=== PATIENT | male | born 2000 | race Caucasian/White ===

== ENCOUNTER 2021-06-17 17:39 | Emergency (ER) | payer BC, MEDICAID ==
[2021-06-17] MEDS ORDERED: Diphtheria,Pertussis(Acell),Tetanus Vaccine 0.5 ML Syringe IM ONE (18:03)
[2021-06-17] MEDS ORDERED: Bacitracin Oint 1 GM U/D Packet TOP ONE (18:03)
--- NOTE | 2021-06-17 18:09 | EDM.PDOC ---
ED HPI GENERAL MEDICAL PROBLEM - General Chief Complaint: Laceration Stated Complaint: CUT LEFT HAND WITH RAZOR BLADE Time Seen by Provider: 06/17/21 18:03 Source of Information: Reports: Patient History Limitations: Reports: No Limitations - History of Present Illness INITIAL COMMENTS - FREE TEXT/NARRATIVE: Darius is a 20-year-old male presenting to the ED for evaluation of a laceration to his left little finger. Patient was trimming up his snowboard with a razor knife and slipped causing him to incise into the palmar side of the PIP of his left little finger. He does have full range of motion and has distal sensation. - Related Data Allergies Allergy/AdvReac Type Severity Reaction Status Date / Time No Known Allergies Allergy Verified 06/17/21 18:04 Home Meds: Home Meds NK [No Known Home Meds] 06/17/21 [History] ED ROS GENERAL - Review of Systems Review Of Systems: See Below Constitutional: Reports: No Symptoms Musculoskeletal: Reports: Hand Pain (Left hand pain due to laceration of the left fifth finger) Skin: Reports: Wound (3 cm laceration on the palmar left little finger at the PIP) Neurological: Reports: No Symptoms ED EXAM, SKIN/RASH Exam: See Below Exam Limited By: No Limitations General Appearance: Alert, No Apparent Distress Extremities: Normal Range of Motion, Normal Capillary Refill Neurological: Alert, Oriented, No Motor/Sensory Deficits Skin: Wound/Incision (3 cm laceration over the PIP of the palmar side of the left little finger. Wound goes into the subcutaneous tissue but spares the tendon. He has normal range of motion.) Location, Skin: Upper Extremity, Left Characteristics: Linear ED SKIN PROCEDURES - Laceration/Wound Repair Left Proximal Digit - 5th (Baby) Appearance: Subcutaneous Distal NVT: Neuro & Vascular Intact Anesthetic Type: Local Local Anesthesia - Lidocaine (Xylocaine): 1% Plain Local Anesthetic Volume: 3cc Skin Prep: Chlorhexidine (Hibiciens) Exploration/Debridement/Repair: Wound Explored, In a Bloodless Field, Explored to Base Closed with: Sutures Lac/Wound length In cm: 3.0 Suture Size: 4-0 # of Sutures: 6 Suture Type: Nylon, Interrupted Sterile Dressing Applied: Nurse Tetanus Status Addressed: Yes Complications: No Course - Vital Signs Last Recorded V/S: Last Vital Signs Temp 36.8 C 06/17/21 18:07 Pulse 64 12/25/21 18:07 Resp 14 06/17/21 18:07 BP 131/71 06/17/21 18:07 Pulse Ox 100 06/17/21 18:07 - Orders/Labs/Meds Orders: Active Orders 24 hr Category Date Time Status Vaccine to be Administered/Admin Charge [RC] ASDIRECTED Care 06/17/21 18:04 Ordered Meds: Medications Discontinued Medications Generic Name Dose Route Start Last Admin Trade Name Rafat PRN Reason Stop Dose Admin Bacitracin 1 dose 06/17/21 18:03 06/17/21 18:10 Bacitracin Oint 1 Gm U/D Packet TOP 06/17/21 18:04 1 dose ONETIME ONE Administration Diphtheria/Tetanus/Acell Pertussis 0.5 ml 06/17/21 18:03 06/17/21 18:10 Diphtheria,Pertussis(Acell),Tetanus Vaccine 0.5 Ml Syringe IM 06/17/21 18:04 0.5 ml .ONCE ONE Administration Lidocaine HCl 5 ml 06/17/21 18:03 06/17/21 18:10 Lidocaine 1% 5 Ml Sdv INJECT 06/17/21 18:04 5 ml ONETIME ONE Administration - Re-Assessments/Exams Free Text/Narrative Re-Assessment/Exam: 06/17/21 18:31 laceration came together nicely with use of a turnicot to maintain homeostasis and using 6 sutures with 4-0 Ethilon. Sutures need to be removed in 7 to 10 days. Likely bacitracin was applied to the wound and a simple bandage was applied over this. Departure - Departure Time of Disposition: 18:31 Disposition: Home, Self-Care 01 Clinical Impression: Laceration of left little finger w/o foreign body w/o damage to nail Qualifiers: Encounter type: initial encounter Qualified Code(s): S61.217A - Laceration without foreign body of left little finger without damage to nail, initial encounter - Discharge Information Instructions: Laceration Care, Adult, Sutures, Leticia, or Adhesive Wound Closure, [id number] Referrals: PCP,Unknown [Primary Care Provider] - Forms: ED Department Discharge Care Plan Goals: Keep the wound clean and dry for the next 24 hours. Apply light coating of Neosporin or triple antibiotic ointment to the wound twice daily with dressing change. Sutures need to be removed in 7 to 10 days. This can be either done at home, and in the clinic, or return to the ED. For signs of infection. Enjoy the snowboarding and be safe. Sepsis Event Note (ED) - Focused Exam Vital Signs: Vital Signs Temp Pulse Resp BP Pulse Ox 06/17/21 18:07 36.8 C 64 14 131/71 100 06/17/21 18:04 36.8 C 64 14 131/71 100 - Problem List & Annotations (1) Laceration of left little finger w/o foreign body w/o damage to nail SNOMED Code(s): 04186237086791652, [id number] Code(s): S61.217A - LAC W/O FB OF L LITTLE FINGER W/O DAMAGE TO NAIL, INIT Status: Acute Priority: Medium Current Visit: Yes Qualifiers: Encounter type: initial encounter Qualified Code(s): S61.217A - Laceration without foreign body of left little finger without damage to nail, initial encounter - Problem List Review Problem List Initiated/Reviewed/Updated: Yes - My Orders Last 24 Hours: My Active Orders 06/17/21 18:04 Vaccine to be Administered/Admin Charge [RC] ASDIRECTED - Assessment/Plan Last 24 Hours: My Active Orders 06/17/21 18:04 Vaccine to be Administered/Admin Charge [RC] ASDIRECTED
== END 2021-06-17 19:07 | disposition home or self-care (01) ==
LOC: JP.ED 17:39
DX: S61.217A Laceration without foreign body of left little finger without damage to nail, initial encounter (principal); Z23 Encounter for immunization; W26.0XXA Contact with knife, initial encounter
CPT/HCPCS: 12002; 90471; 90715; 99282-25

== ENCOUNTER 2022-12-17 15:52 | Emergency (ER) | payer OTHER, BC, MEDICAID | END 2022-12-17 18:01 | disposition home or self-care (01) | LOC: JP.ED 15:52 | DX: S93.402A Sprain of unspecified ligament of left ankle, initial encounter (principal); F17.210 Nicotine dependence, cigarettes, uncomplicated; X50.1XXA Overexertion from prolonged static or awkward postures, initial encounter; Y93.68 Activity, volleyball (beach) (court) | CPT/HCPCS: 73610-26-LT; 73610-LT; 99283 ==